=== PATIENT | male | born 1995 | race Caucasian/White ===

== ENCOUNTER 2018-09-27 12:36 | Emergency (ER) | payer SELFPAY ==
[~2018-09-27] VITALS: Ht 177.8 cm; Wt 65.8 kg
[2018-09-27 12:36] VITALS: BP 136/73
--- NOTE | 2018-09-27 12:36 | NUR ---
ED Nurse Note: PT BROUGHT IN BY [facility] DUE TO OD AFTER FENTANYL USE. PER EMS, NARCAN ADMINISTERED EN ROUTE. UPON ARRIVAL, PT IS AOX4, AWAKE, AND ANSWERING ALL QUESTIONS APPROPRIATELY. PT STATES HE TOOK "ABOUT A HALF GRAM" OF FENTANYL. PT DENIES SI/HI AND STATES THIS WAS DONE RECREATIONALLY WITH NO INTENT OF SELF-HARM. PT TACHYCARDIC ON FISH DRIER - HR 101. DR ALLEN AWARE. OTHER VITAL SIGNS STABLE.
--- NOTE | 2018-09-27 12:41 | NUR ---
ED Nurse Note: [employer] AT BEDSIDE.
[2018-09-27 13:07] LABS: BASOPHILS % (AUTO) 1.1 % (0.0-2.0); EOSINOPHILS % (AUTO) 7.1 % (0.0-3.0); HEMATOCRIT 40.1 % (42.0-52.0); HEMOGLOBIN 13.6 G/DL (14.2-18.0); LYMPHOCYTES % (AUTO) 33.3 % (20.0-45.0); MEAN CORPUSCULAR VOLUME 92 FL (80-99); MONOCYTES % (AUTO) 9.4 % (1.0-10.0); NEUTROPHILS % (AUTO) 49.1 % (45.0-75.0); PLATELET COUNT 241 K/UL (150-450); RED BLOOD COUNT 4.37 M/UL (4.70-6.10); RED CELL DISTRIBUTION WIDTH 10.6 % (11.6-14.8); WHITE BLOOD COUNT 6.7 K/UL (4.8-10.8)
[2018-09-27 13:18] LABS: ANION GAP 6 mmol/L (5-15); BLOOD UREA NITROGEN 7 mg/dL (7-18); CALCIUM 8.9 MG/DL (8.5-10.1); CARBON DIOXIDE 29 MMOL/L (21-32); CHLORIDE 104 MMOL/L (98-107); CREATININE 0.8 MG/DL (0.55-1.30); POTASSIUM 3.5 MMOL/L (3.5-5.1); SODIUM 139 MMOL/L (136-145)
[2018-09-27 13:23] LABS: ALANINE AMINOTRANSFERASE 17 U/L (12-78); ALBUMIN 3.4 G/DL (3.4-5.0); ALKALINE PHOSPHATASE 87 U/L (46-116); ASPARTATE AMINO TRANSFERASE 22 U/L (15-37); BILIRUBIN,TOTAL 0.3 MG/DL (0.2-1.0)
[2018-09-27] MEDS ORDERED: NARCAN4 MG NS (14:16)
--- NOTE | 2018-09-27 14:30 | NUR ---
HAND-OFF: REPORT GIVEN TO SIDNEY FRANK.
--- NOTE | 2018-09-27 14:35 | Emergency Room Report ---
History of Present Illness General Chief Complaint: Overdose Source: Patient Present Illness HPI Patient presents with reports of fentanyl overdose Paramedics responded to an unresponsive patient He reports that he has used fentanyl before he injects himself with the fentanyl after mixing it He reports that he used a stronger dose than usual Denies any headache denies any chest pain Patient was given Narcan by paramedics and had appropriate response Denies any neck pain or photophobia Allergies: Coded Allergies: No Known Allergies (Unverified , 09/27/18) Patient History Past Medical History: see triage record Pertinent Family History: none Reviewed Nursing Documentation: PMH: Agreed; PSxH: Agreed Nursing Documentation-PMH Past Medical History: No History, Except For Review of Systems All Other Systems: negative except mentioned in HPI Physical Exam Vital Signs Date Time Temp Pulse Resp B/P (MAP) Pulse Ox O2 Delivery O2 Flow Rate FiO2 09/27/18 12:30 98.1 108 18 141/75 (97) 99 Room Air Sp02 EP Interpretation: reviewed, normal General Appearance: no apparent distress Head: normocephalic, atraumatic Eyes: bilateral eye PERRL, bilateral eye EOMI ENT: hearing grossly normal, normal pharynx Neck: supple Respiratory: lungs clear Cardiovascular #1: regular rate, rhythm Gastrointestinal: non tender, soft Genitourinary: no CVA tenderness Musculoskeletal: normal inspection Neurologic: alert, oriented x3, responsive, dive supervisor III-XII nml as tested Psychiatric: normal inspection Skin: no rash Lymphatic: no adenopathy Medical Decision Making Diagnostic Impression: Primary Impression: Drug overdose ER Course Patient has remained awake and alert throughout his stay did not require any further injection Patient has cardiac monitoring and observed Blood work is at baseline levels Patient denies any homicidal or suicidal thoughts and reports and accidental overdose Patient was given a prescription of Narcan And is otherwise medically stabilized for further outpatient care Labs Test 09/27/18 12:55 White Blood Count 6.7 K/UL (4.8-10.8) Red Blood Count 4.37 M/UL (4.70-6.10) Hemoglobin 13.6 G/DL (14.2-18.0) Hematocrit 40.1 % (42.0-52.0) Mean Corpuscular Volume 92 FL (80-99) Mean Corpuscular Hemoglobin 31.0 PG (27.0-31.0) Mean Corpuscular Hemoglobin Concent 33.8 G/DL (32.0-36.0) Red Cell Distribution Width 10.6 % (11.6-14.8) Platelet Count 241 K/UL (150-450) Mean Platelet Volume 7.7 FL (6.5-10.1) Neutrophils (%) (Auto) 49.1 % (45.0-75.0) Lymphocytes (%) (Auto) 33.3 % (20.0-45.0) Monocytes (%) (Auto) 9.4 % (1.0-10.0) Eosinophils (%) (Auto) 7.1 % (0.0-3.0) Basophils (%) (Auto) 1.1 % (0.0-2.0) Sodium Level 139 MMOL/L (136-145) Potassium Level 3.5 MMOL/L (3.5-5.1) Chloride Level 104 MMOL/L (98-107) Carbon Dioxide Level 29 MMOL/L (21-32) Anion Gap 6 mmol/L (5-15) Blood Urea Nitrogen 7 mg/dL (7-18) Creatinine 0.8 MG/DL (0.55-1.30) Estimat Glomerular Filtration Rate > 60 mL/min (>60) Glucose Level 177 MG/DL (74-106) Calcium Level 8.9 MG/DL (8.5-10.1) Total Bilirubin 0.3 MG/DL (0.2-1.0) Aspartate Amino Transf (AST/SGOT) 22 U/L (15-37) Alanine Aminotransferase (ALT/SGPT) 17 U/L (12-78) Alkaline Phosphatase 87 U/L (46-116) Total Protein 6.9 G/DL (6.4-8.2) Albumin 3.4 G/DL (3.4-5.0) Globulin 3.5 g/dL Albumin/Globulin Ratio 1.0 (1.0-2.7) Rhythm Strip Diag. Results EP Interpretation: yes Rate: 88 Rhythm: NSR, no PVC's, no ectopy Last Vital Signs Date Time Temp Pulse Resp B/P (MAP) Pulse Ox O2 Delivery O2 Flow Rate FiO2 09/27/18 12:36 101 11 Room Air 09/27/18 12:36 98.1 136/73 100 Status: improved Disposition: HOME, SELF-CARE Condition: Improved Scripts Naloxone HCl (Narcan) 4 Mg [place] 4 MG NS PRN, #2 SPRAY Prov: Charity Webb DO 09/27/18 Referrals: [facility] Patient Instructions: Drug Overdose, Narcotic Overdose Additional Instructions: Patient is provided with the discharge instructions notified to follow up with primary doctor in the next 2-3 days otherwise return to the er with any worsening symptoms. Please note that this report is being documented using [employer] technology. This can lead to erroneous entry secondary to incorrect interpretation by the dictating instrument. Charity Webb DO Sep 27, 2018 14:35
[2018-09-27 14:36] VITALS: BP 98/65
--- NOTE | 2018-09-27 14:39 | NUR ---
ED Nurse Note: Pt cleared by health care Provider for discharge. DC instructions/prescription was given and explained to pt and verbalized understanding of teachings. All medical devces such as ID band removed. Pt is AAO x4, ambulatory and left with all personal belongings.
== END 2018-09-27 14:40 | disposition home or self-care (01) ==
LOC: EDBD 12:36 → EMR 14:20
DX: T40.4X1A Poisoning by other synthetic narcotics, accidental (unintentional), initial encounter (principal); X58.XXXA Exposure to other specified factors, initial encounter
CPT/HCPCS: 36415; 80053; 85025; 99284